=== PATIENT | female | born 1930 | race Caucasian/White ===

== ENCOUNTER 2016-06-16 11:43 | Outpatient (CLI) | payer MEDICARE, OTHER ==
[2015-06-29 13:46] VITALS: BP 123/79
== END 2016-06-16 11:44 ==
LOC: LAB 11:43
PROVIDERS: ATTEND Family Medicine
DX: Z51.81 Encounter for therapeutic drug level monitoring (principal); Z79.01 Long term (current) use of anticoagulants
CPT/HCPCS: 36415; 85610

== ENCOUNTER 2016-06-30 10:51 | Outpatient (CLI) | payer MEDICARE, OTHER ==
[2015-06-29 13:46] VITALS: BP 123/79
== END 2016-06-30 10:52 ==
LOC: LAB 10:51
PROVIDERS: ATTEND Family Medicine
DX: Z51.81 Encounter for therapeutic drug level monitoring (principal); Z79.01 Long term (current) use of anticoagulants
CPT/HCPCS: 36415; 85610

== ENCOUNTER 2016-10-06 09:23 | Outpatient (CLI) | payer MEDICARE, OTHER ==
[2015-06-29 13:46] VITALS: BP 123/79
[2016-10-06 09:45] LABS: BASOPHILS % 0.8 (0.0-1.5); EOSINOPHILS % 8.8 % (0.0-6.8); MEAN CORPUSCULAR HEMOGLOBIN 30.5 pg (28.0-34.0); MEAN CORPUSCULAR VOLUME 94.2 fl (80.0-100.0); MONOCYTES % 8.9 % (0.0-11.0); NEUTROPHILS # 2.8 # k/uL (1.4-7.7)
[2016-10-06 10:08] LABS: eGFR (African) 42; eGFR (Non-African) 35
[2016-10-06 17:30] LABS: VITAMIN D, 25-HYDROXY 34 ng/mL (30-100)
== END 2016-10-06 09:24 ==
LOC: LAB 09:23
PROVIDERS: ATTEND Family Medicine
DX: I10 Essential (primary) hypertension (principal); M79.1 Myalgia; N18.9 Chronic kidney disease, unspecified; E03.9 Hypothyroidism, unspecified; R53.83 Other fatigue
CPT/HCPCS: 36415; 80053; 80061; 82306; 82607; 84439; 84443; 84481; 85025

== ENCOUNTER 2017-03-13 14:45 | Emergency (ER) | payer MEDICARE, OTHER ==
--- NOTE | 2017-03-13 15:01 | ED Physician Documentation ---
General Adult - HISTORIAN Historian: patient - HPI Stated Complaint: shortness of breath Chief Complaint: Dyspnea (anxiety ) Onset: hours (1) Timing: better Severity: mild Modifying Factors: states she "gets this way in the dark" notes her garage was dark Further Comments: no Last known Well Date: 03/13/17 Last Known Well Time: 12:00 Last known Well Code/Unknown Code: Unknown - ROS CONST: no problems EYES/ENT: none CVS/RESP: chest pain, shortness of breath GI/: none - PAST HX Past History: other (she is not sure ) Other History: other Surgeries/Procedures: other (she is unsure ) Immunizations: referred to PCP Allergies/Adverse Reactions: Allergies Allergy/AdvReac Type Severity Reaction Status Date / Time amlodipine besylate Allergy Verified 03/13/17 15:46 [From Norvasc] azithromycin [From Zithromax] Allergy Verified 03/13/17 15:46 nalbuphine HCl [From Nubain] Allergy Verified 03/13/17 15:46 ofloxacin [From Floxin] Allergy Verified 03/13/17 15:46 Sulfa (Sulfonamide Allergy Verified 03/13/17 15:46 Antibiotics) erythromycin base AdvReac Rash Verified 03/13/17 15:46 ibuprofen [From Motrin] AdvReac Rash Verified 03/13/17 15:46 iron AdvReac Nausea/Vomi Verified 03/13/17 15:46 ting Home Medications: Ambulatory Orders Medication Instructions Recorded Acyclovir [Zovirax] 400 mg PO D 06/25/15 Calcium Carb 500Mg [Tums] 500 mg PO PRN PRN 06/25/15 Calcium Carbonate/Vitamin D3 1 each PO D 06/25/15 [Calcium 600 + Vit D3 Caplet] Cyanocobalamin [Vitamin B-12] 1,000 mcg IM Q30D 06/25/15 Cyanocobalamin [Vitamin B-12] 1,000 mcg PO D 06/25/15 Docusate Sodium [Colace] 100 mg PO DAILY 06/25/15 Guanfacine HCl 2 mg PO D 06/25/15 Levothyroxine Sodium [Levoxyl] 88 mcg PO 07 06/25/15 Lidocaine HCl/Menthol [Pain Relief 1 each TP D 06/25/15 5%-1% Patch] Melatonin 3 mg PO HS PRN 06/25/15 Mv-Mn/FA/Vit K/Lycop/Lut/Coq10 1 each PO D 06/25/15 [Daily Multivitamin Capsule] Nebivolol HCl [Bystolic] 10 mg PO D 06/25/15 Polyethylene Glycol 3350 [Miralax] 17 gm PO 1100 PRN 06/25/15 Sennosides [Senna] 8.6 mg PO D 06/25/15 Spironolactone [Aldactone] 25 mg PO DAILY 06/25/15 Temazepam [Restoril] 15 mg PO HS PRN 06/25/15 diphenhydrAMINE HCL [Benadryl] 25 mg PO Q6 PRN 06/25/15 traMADol HCL [Ultram] 50 - 100 mg PO Q6H PRN 06/25/15 - SOCIAL HX Smoking History: non-smoker Alcohol Use: none Drug Use: none - FAMILY HX Family History: No - VITAL SIGNS Vital Signs: Vital Signs Temp Pulse Resp BP Pulse Ox 123/79 06/29/15 12:10 - REVIEWED ASSESSMENTS Nursing Assessment Reviewed: Yes Vitals Reviewed: Yes ED Results Lab/Radiology - Radiology Radiology Impressions: Examination: PA and lateral chest. History: Evaluate lung jimenez. Comparison exam: None provided Findings: PA lateral chest demonstrate a normal cardiac silhouette. Tortuous aorta. Chronic appearing interstitial changes. Scarring involving the mid right lung field. No focal infiltrate. No blunting of the costophrenic margins. Osseous structures are appropriate for age. Impression: Chronic parenchymal changes and scarring. No acute pulmonary process. Electronically signed on Mar 13, 2017 3:35:55 PM CDT by: Maury Donis - Orders Orders: ED Orders Category Date Time Status EKG WITH COMPARISON Routine Ther 03/13/17 Completed General Adult Physical Exam - PHYSICAL EXAM GENERAL APPEARANCE: no distress EENT: eye inspection normal, ENT inspection normal NECK: normal inspection RESPIRATORY: no resp distress, chest non-tender, breath sounds normal CVS: reg rate & rhythm, heart sounds normal, equal pulses ABDOMEN: soft, no organomegaly, normal bowel sounds SKIN: warm/dry, normal color EXTREMITIES: non-tender, normal range of motion, no evidence of injury NEURO: oriented X3, CN's nml as tested, motor nml Discharge Clincal Impression: Anxiety Referrals: Janice Barrios MD [Primary Care Provider] - 2 Days Condition: Stable Disposition: 01 HOME, SELF-CARE Decision to Admit: NO Date of Decison to Admit: 03/13/17 Decision Time: 15:43
[2017-03-13 15:10] LABS: BASOPHILS % 0.5 (0.0-1.5); EOSINOPHILS % 3.5 % (0.0-6.8); MEAN CORPUSCULAR HEMOGLOBIN 28.7 pg (28.0-34.0); MEAN CORPUSCULAR VOLUME 90.4 fl (80.0-100.0); MONOCYTES % 5.5 % (0.0-11.0); NEUTROPHILS # 4.5 # k/uL (1.4-7.7)
[2017-03-13 15:20] LABS: eGFR (African) 34; eGFR (Non-African) 28
--- NOTE | 2017-03-13 15:52 | Diagnostic Imaging Report ---
JAROD GARCIA [facility] [address] [address] [place], [place]. [address] Report Submission Date: Mar 13, 2017 3:35:55 PM CDT Patient Study Name: CANDACE KENNY Date: Mar 13, 2017 3:14:51 PM CDT Modality Type: CR Gender: F Description: CHEST : 28 Institution: [facility] Physician: JAROD GARCIA Examination: PA and lateral chest. History: Evaluate lung jimenez. Comparison exam: None provided Findings: PA lateral chest demonstrate a normal cardiac silhouette. Tortuous aorta. Chronic appearing interstitial changes. Scarring involving the mid right lung field. No focal infiltrate. No blunting of the costophrenic margins. Osseous structures are appropriate for age. Impression: Chronic parenchymal changes and scarring. No acute pulmonary process. Electronically signed on Mar 13, 2017 3:35:55 PM CDT by: Maury MILTON
[2017-03-13 16:07] VITALS: BP 169/92
== END 2017-03-13 16:05 | disposition home or self-care (01) ==
LOC: ED 14:45
DX: F41.9 Anxiety disorder, unspecified (principal)
CPT/HCPCS: 71020; 80053; 84484; 85025; 99283; S1016